=== PATIENT | male | born 1955 | race Caucasian/White ===

== ENCOUNTER 2021-09-02 13:37 | Emergency (ER) | payer MEDICARE, OTHER ==
[2021-09-02 18:58] LABS: CORONAVIRUS 2019 SARS-COV-2 NEGATIVE (NEGATIVE); INFLUENZA A NAA NEGATIVE (NEGATIVE)
[2021-09-02] MEDS ORDERED: AMOX TR-K CLV1 EAC4 PO (19:42)
[2021-09-02] MEDS ORDERED: MEDROL 4MG DOSEP4 MG PO (19:42)
[2021-09-02] MEDS ORDERED: ZPAK PO (19:42)
== END 2021-09-02 20:00 | disposition home or self-care (01) ==
LOC: FER 13:37
PROVIDERS: Nurse Practitioner Family
DX: J18.9 Pneumonia, unspecified organism (principal); J06.9 Acute upper respiratory infection, unspecified; I10 Essential (primary) hypertension; Z20.822 Contact with and (suspected) exposure to COVID-19
CPT/HCPCS: 71046; 96372; J0696; J1100; U0002